=== PATIENT | male | born 1990 | race African-American/Black ===

== ENCOUNTER 2018-12-11 10:34 | Emergency (ER) | payer OTHER ==
[~2018-12-11] VITALS: Ht 180.3 cm; Wt 131.5 kg
[~2018-12-11 10:34] MED LIST: AMOXICILLIN 50500 MG PO; AZITHROMYCIN 2250 MG PO; NOHOMEMEDICATIONS; NORCO 5-325 TA1 EACH PO
[2018-12-11 10:43] VITALS: BP 174/91
[2018-12-11] MEDS ORDERED: CELEXA10 MG PO (10:46)
[2018-12-11] MEDS ORDERED: KEFLEX500 M1 PO (10:51)
[2018-12-11] MEDS ORDERED: ACETAMINOPHEN-1 EAC1 PO (10:51)
== END 2018-12-11 10:58 | disposition home or self-care (01) ==
LOC: M.ERS 10:34
DX: K02.9 Dental caries, unspecified (principal)

== ENCOUNTER 2019-06-29 09:16 | Emergency (ER) | payer OTHER ==
[~2019-06-29] VITALS: Ht 180.3 cm; Wt 141.1 kg
[~2019-06-29 09:16] MED LIST changes: +ACETAMINOPHEN-1 EAC1 PO; +CELEXA10 MG PO; +KEFLEX500 M1 PO
[2019-06-29] MEDS ORDERED: PENICILLIN VK500 MG PO (09:37)
[2019-06-29] MEDS ORDERED: TRAMADOL 50 MG50 MG PO (09:37)
[2019-06-29 09:44] VITALS: BP 172/103
== END 2019-06-29 09:45 | disposition home or self-care (01) ==
LOC: M.ERS 09:16
DX: K08.89 Other specified disorders of teeth and supporting structures (principal); F41.9 Anxiety disorder, unspecified

== ENCOUNTER 2019-10-03 00:09 | Emergency (ER) | payer OTHER ==
[~2019-10-03] VITALS: Ht 180.3 cm; Wt 145.2 kg
[~2019-10-03 00:09] MED LIST changes: +PENICILLIN VK500 MG PO; +TRAMADOL 50 MG50 MG PO
[2019-10-03 00:17] VITALS: BP 174/104
[2019-10-03] MEDS ORDERED: PENICILLIN VK250 MG PO (00:22)
== END 2019-10-03 00:41 | disposition home or self-care (01) ==
LOC: M.ERS 00:09
DX: K08.89 Other specified disorders of teeth and supporting structures (principal)